=== PATIENT | male | born 1990 | race Caucasian/White ===

== ENCOUNTER 2022-12-26 15:34 | Emergency (ER) | payer BC ==
[2022-12-26] MEDS ORDERED: Lidocaine 1% 10 ML MDV INJECT ONE (16:03)
== END 2022-12-26 17:41 | disposition home or self-care (01) ==
LOC: JD.ED 15:34
DX: S61.217A Laceration without foreign body of left little finger without damage to nail, initial encounter (principal); S61.215A Laceration without foreign body of left ring finger without damage to nail, initial encounter; S61.213A Laceration without foreign body of left middle finger without damage to nail, initial encounter
CPT/HCPCS: 12002; 99282; J3490